=== PATIENT | male | born 1995 | race African-American/Black ===

== ENCOUNTER 2023-04-12 12:49 | Emergency (ER) | payer MEDICAID, OTHER ==
[~2023-04-12] VITALS: Ht 185.4 cm; Wt 86.3 kg
[2023-04-12 14:34] LABS: Amphetamine Screen, Urine Neg (NEGATIVE); Barbiturate Scree,Urine Neg (NEGATIVE); Benzodiazephine Screen, Urine Neg (NEGATIVE); Cannabinoid Screen, Urine Pos (NEGATIVE); Cocaine Screen, Urine Neg (NEGATIVE); Opiate Scree,Urine Neg (NEGATIVE); Phencyclidine Screen, Urine Neg (NEGATIVE)
[2023-04-12] MEDS ORDERED: OLAN20TA PO (19:08)
[2023-04-12 19:33] VITALS: BP 147/92; PULSE 69; RESP 20; TEMP 97.9; O2SAT 95
[2023-04-12] MEDS ORDERED: OLANZapine 5 MG TAB PO SCH (22:00)
== END 2023-04-12 19:10 | disposition home or self-care (01) ==
LOC: ER 12:49 → EDBD 12:49 → ER 19:10
DX: F41.9 Anxiety disorder, unspecified (principal); F15.90 Other stimulant use, unspecified, uncomplicated; R44.0 Auditory hallucinations; G47.00 Insomnia, unspecified; F17.210 Nicotine dependence, cigarettes, uncomplicated
CPT/HCPCS: 80307

== ENCOUNTER 2023-10-07 12:50 | Emergency (ER) | payer SELFPAY ==
[~2023-10-07] VITALS: Ht 188 cm; Wt 96.1 kg
[~2023-10-07 12:50] MED LIST: OLAN20TA PO
[2023-10-07] MEDS ORDERED: CEPH500C PO (14:32)
[2023-10-07] MEDS ORDERED: IBUP-1455 PO (14:32)
[2023-10-07 14:37] VITALS: BP 121/83; PULSE 60; RESP 18; TEMP 97.9; O2SAT 99
== END 2023-10-07 14:38 | disposition home or self-care (01) ==
LOC: ER 12:50
DX: J34.0 Abscess, furuncle and carbuncle of nose (principal); F17.210 Nicotine dependence, cigarettes, uncomplicated; F15.90 Other stimulant use, unspecified, uncomplicated; Z79.899 Other long term (current) drug therapy